=== PATIENT | female | born 1995 | race Caucasian/White ===

== ENCOUNTER 2021-04-15 14:04 | Outpatient (REF) | payer BC, SELFPAY ==
[2021-04-15 20:46] LABS: Hemoglobin A1C 5.2 % (<5.7)
[2021-04-15 20:47] LABS: ALT 19 U/L (14-59); AST 11 U/L (15-37); Albumin 3.9 g/dL (3.4-5.0); Alkaline Phosphatase 75 U/L (46-116); Anion Gap 10.1 mmol/L (3-11); BUN 15 mg/dL (7-18); Bilirubin, Total 0.3 mg/dL (0.2-1.0); CO2 24.9 mmol/L (21.0-32.0); CREATININE 0.8 mg/dL (0.55-1.02); Calcium 8.9 mg/dL (8.5-10.1); Calculated LDL 141 mg/dL (<100); Chloride 106 mmol/L (98-107); Cholesterol 196 mg/dL (<200); Glucose 92 mg/dL (74-106); HDL Cholesterol 46 mg/dL (40-60); Sodium 141 mmol/L (136-145); Total Protein 7.6 g/dL (6.4-8.2); Triglyceride 49 mg/dL (<150)
== END 2021-04-15 14:05 | disposition home or self-care (01) ==
LOC: NCHCN 14:04
PROVIDERS: Visit Provider Nurse Practitioner Family
DX: Z68.42 Body mass index [BMI] 45.0-49.9, adult (principal)
CPT/HCPCS: 80053; 80061; 83036

== ENCOUNTER 2021-05-10 19:17 | Outpatient (REF) | payer BC, SELFPAY ==
--- NOTE | 2021-05-10 10:35 | PAPFT_PTH ---
PATIENT: Kirstin Garner LOC: [facility] U#:[id number] AGE/SX: 26/F ROOM: RE05/10/[address]: Jeanie Grossman : 1995 BED: DIS: 05/10/2021 SPEC #: [id number] RECD: 05/11/21 12:45 STATUS: SHEYLA RECatalino #: [id number] SERJIO: 05/10/21 10:[address]: ChaunceyIona DEPT: [facility] Cytology RECD BY: Jessica Rand ENTERED: 05/11/21 12:45 SP TYPE: PAPFT OTHR DR: Unknown,Unknown Tissues: 1 - CX/ENDOCX FOR PAP SMEARS Procedures: PAP THIN PREP/[facility] Screening Comments: [id number] (CHLAMYDIA/GC)
[2021-05-13 14:01] LABS: Chlamydia Result Negative (Negative); GC Result Negative (Negative)
== END 2021-05-10 19:18 | disposition home or self-care (01) ==
LOC: LBN 19:17
PROVIDERS: Visit Provider Nurse Practitioner Family
DX: Z12.4 Encounter for screening for malignant neoplasm of cervix (principal); Z11.3 Encounter for screening for infections with a predominantly sexual mode of transmission
CPT/HCPCS: 87491; 87591; 88142

== ENCOUNTER 2021-07-08 17:57 | Outpatient (REF) | payer BC, SELFPAY | END 2021-07-08 17:58 | disposition home or self-care (01) | LOC: NCHCN 17:57 | PROVIDERS: Visit Provider Nurse Practitioner Family | DX: N39.0 Urinary tract infection, site not specified (principal) | CPT/HCPCS: 87077; 87086; 87186 ==